=== PATIENT | female | born 1950 | race Caucasian/White ===

== ENCOUNTER → 2017-01-02 | Outpatient (CLI) | payer OTHER ==
[~2017-01-02] MED LIST: ATOR-22; CLON0.5T3; EFFSR150; SYNTHYROID
--- NOTE | 2017-01-02 16:28 | MAMMOGRAPHY REPORT ---
BILATERAL DIGITAL SCREENING MAMMOGRAM WITH CAD: 01/02/2017 CLINICAL HISTORY: Routine screening. Patient has no complaints. TECHNIQUE: Current study was also evaluated with a Computer Aided Detection (CAD) system. Bilateral CC and MLO views were obtained. COMPARISON: Comparison is made to exams dated: 01/02/2016 mammogram, 01/02/2016 mammogram, and 12/30/19 15 mammogram - [facility]. Also outside prior mammograms dated 10/30/2013, 10/29/19 12, 10/27/2010, 10/26/2009. BREAST COMPOSITION: There are scattered areas of fibroglandular density in both breasts. FINDINGS: No suspicious masses, calcifications, or areas of architectural distortion are noted in ei ther breast. There has been no significant interval change compared to prior exams. IMPRESSION: ACR BI-RADS CATEGORY 1: NEGATIVE There is no mammographic evidence of malignancy. A 1 year screening mammogram is recommended. The pa tient will receive written notification of the results. Approximately 10% of breast cancers are not detected with mammography. A negative mammographic report should not delay biopsy if a clinically suggestive mass is present. Gris Presley M.D. /:01/02/2017 14:10:28 Bomb Loader: Myah SAEED(Twin)(Herrera), [facility] letter sent: Normal 1/2 BI-RADS Code: ACR BI-RADS Category 1: Negative
== END | disposition home or self-care (01) ==
LOC: C.MAMM 13:12
PROVIDERS: ATTEND Nurse Practitioner
DX: Z12.31 Encounter for screening mammogram for malignant neoplasm of breast (principal)

== ENCOUNTER 2018-07-16 04:56 | Inpatient (IN) ==
--- NOTE | 2018-06-20 11:59 | Anesthesiology Consultation ---
Date of Service June 20, 2018 Assessment & Plan (1) Encounter for pre-operative examination: Chart Review Chart Review: Acceptable Risk for Surgery and Patient seen in Pre Admission Testing Consults Requested medical & cardiac (Monica Ch (07/04/18) & cardio for new LBBB) Patient was seen by cardio on 07/09 and they stated that patient is "low cardiac risk for surgery with no contraindications." Patient was seen by PCP's office on 07/04/18 who stated that patient is medically clear as long as cardiology clears her. Teaching & Discussion Pre-Anesthesia Teaching/Discussion Notes: Instructed NPO after midnight before surgery, except medications with 15 cc of water. Medication instructions provided according to the PAT guidelines. History Surgery Operation Date: 07/16/18 11:00 Proposed Procedures p Right Total Knee Arthroplasty - Ole Linares MD Height/Weight Height: 5 ft 1 in Weight: 67.9 kg Allergies Allergy/AdvReac Type Severity Reaction Status Date / Time Penicillins Allergy Mild RASH Verified 06/16/18 13:17 Medications Home Medications Medication Instructions Recorded Confirmed Last Taken atorvastatin 40 mg PO QPM 06/16/18 06/16/18 Unknown levothyroxine 75 mcg PO QAM 06/16/18 06/16/18 Unknown lisinopril 20 mg PO QAM 06/16/18 06/16/18 Unknown metformin 500 mg PO QPM 06/16/18 06/16/18 Unknown pioglitazone 30 mg PO QAM 06/16/18 06/16/18 Unknown sertraline 50 mg PO QAM 06/16/18 06/16/18 Unknown cetirizine [Zyrtec] 10 mg PO QAM 06/20/18 06/20/18 Unknown Past Medical History Medical History Anxiety Depression Diabetes mellitus, type 2 High cholesterol Hypertension Hypothyroidism Left bundle branch block (LBBB) Osteoarthritis Raynauds disease Past Family History Family History Father Family history of diabetes mellitus Past Surgical History Surgical History History of left knee replacement Hx of cholecystectomy Hx of eye surgery (x3 total) both eyes as child for eye muscles Hx of tubal ligation Past Anesthesia History No Hx of Anesthesia Complications and No Family Hx of Anesthesia Complications History of PONV No Motion Sickness Screening History of Motion Sickness: No Social History Smoking Status: Never smoker Do You Dip or Chew Tobacco: No Hx Alcohol Use: No Hx Substance Use: No Exercise / Class Metabolic Activity II 4-5 Yardwork/Stairs/Walk up hill (Limited due to knee pain over last 3 months. Still able to climb FOS. Denies CP or SOB. ) Review of Systems Patient denies chest pain, shortness of breath, dyspnea on exertion, cough, wheezing, palpitations. +joint pain (knee, shoulders) +acid reflux (will rarely happen, will take an occasional TUMS) Physical Exam Vital Signs BP: 143/81 P: 85 R: 18 T: 97.9 SPO2: 96% on RA ENMT Thyromental Distance: > or= 3.5 Finger Breadths (4+) Mallampati Class: IV Neck normal visual inspection and trachea midline; neck extension not limited Respiratory normal respiratory effort Auscultation: lungs clear to auscultation bilaterally Cardiovascular Rate/Rhythm: regular rate and regular rhythm Heart Sounds: no murmur Vessels: no carotid bruit Neurologic moves all extremities Psychiatric Orientation: alert and oriented x 3 Testing Electrocardiogram Date: 06/20/18 Findings: + LBBB ((new)) Sinus rhythm with occasional PVCs @ 86bpm. Chest X-Ray Date: 06/20/18 Findings: + NAD FINDINGS: A few scattered dense nodules within the left lung base and right upper lobe. These likely represent calcified granulomas. Prior cholecystectomy. No focal lung consolidations to suggest pneumonia. No evidence for pulmonary edema. The heart is normal in size. IMPRESSION: No acute process. Echocardiogram Date: 07/07/18 EF: 66% RWMA: + none Valvular Disease: + no significant valvular disease The LV wall thickness is mildly increased (concentric). The right ventricular cavity size and systolic function is normal. The left ventricular diastolic function is mildly abnormal (grade I). Trace aortic insufficiency. Significant mitral regurgitation is absent. No pericardial effusion is noted. Stress Test Date: 07/03/18 Type: nuclear Resting EF: 75% Resting LV Function: normal Rest ECG: NSR, LBBB Stress ECG: sinus tach, LBBB Arrhythmias: Occasional PVCs Symptoms: Dizzy Lexiscan nuclear stress test negative for ischemia. Patient reached 89% MPHR. Laboratory Results 06/20/18 12:55 06/20/18 12:55 Blood Type O Positive 06/20/18 12:55 Antibody Screen NEGATIVE 06/20/18 12:55 PT 11.0 Seconds (9.0-12.0) 06/20/18 12:55 INR 1.1 (0.9-1.1) 06/20/18 12:55 APTT 24.5 Seconds (21.0-31.0) 06/20/18 12:55 Hemoglobin A1c 7.1 % (4.5-5.6) H 06/20/18 12:55 Urine Color Yellow 06/20/18 12:55 Urine Appearance Clear (Clear) 06/20/18 12:55 Urine pH 5.0 (4.5-7.5) 06/20/18 12:55 Ur Specific [place] 1.024 (1.000-1.030) 06/20/18 12:55 Urine Protein Negative (Negative) 06/20/18 12:55 Urine Glucose (UA) Negative (Negative) 06/20/18 12:55 Urine Ketones Negative (Negative) 06/20/18 12:55 Urine Nitrite Negative (Negative) 06/20/18 12:55 Ur Leukocyte Esterase Negative (Negative) 06/20/18 12:55
--- NOTE | 2018-06-20 12:02 | PAT Medication Instructions ---
Medication Instructions Date of Service June 20, 2018 Home Medications atorvastatin 40 mg PO QPM levothyroxine 75 mcg PO QAM lisinopril 20 mg PO QAM metformin 500 mg PO QPM pioglitazone 30 mg PO QAM sertraline 50 mg PO QAM cetirizine [Zyrtec] 10 mg PO QAM DO NOT take the morning of surgery pioglitazone 30 mg PO QAM lisinopril 20 mg PO QAM cetirizine [Zyrtec] 10 mg PO QAM Take morning of surgery With a small sip of water, OTHERWISE NOTHING TO EAT OR DRINK AFTER MIDNIGHT: sertraline 50 mg PO QAM levothyroxine 75 mcg PO QAM Take evening before surgery atorvastatin 40 mg PO QPM metformin 500 mg PO QPM Other Notes If you have any questions please call us at [phone] or [phone] or [phone] or [phone]
--- NOTE | 2018-06-20 13:39 | XRay Report ---
XR chest Pre-admission PA/Lat HISTORY: Preop. COMPARISON: Chest 11/26/2005. FINDINGS: A few scattered dense nodules within the left lung base and right upper lobe. These likely represent calcified granulomas. Prior cholecystectomy. No focal lung consolidations to suggest pneumo tyrone. No evidence for pulmonary edema. The heart is normal in size. IMPRESSION: No acute process. Electronically signed by: Jakob Taylor M.D. 06/20/2018 1:38 PM
[2018-06-20 14:09] LABS: Basophils # (auto) 0.02 K/uL (0-0.2); Basophils % (auto) 0.4 %; Eosinophils # (auto) 0.09 K/uL (0-0.5); Eosinophils % (auto) 1.6 %; Hematocrit (blood only) 38.8 % (37-47); Hemoglobin 12.2 g/dL (12.0-16.0); Immature Granulocytes # (auto) 0.01 K/uL (0.00-0.02); Immature Granulocytes % (auto) 0.2 %; Lymphocytes # (auto) 0.95 K/uL (1.2-3.4); Lymphocytes % (auto) 17.1 %; Mean Corpuscular Hgb Conc 31.4 g/dL (32-36); Monocytes # (auto) 0.46 K/uL (0.11-0.59); Monocytes % (auto) 8.3 %; Neutrophils # (auto) 4.02 K/uL (1.4-6.5); Neutrophils % (auto) 72.4 %; Platelet Count 218 K/uL (130-400); RDW Coefficient of Variation 14.6 % (11.5-14.5); RDW Standard Deviation 49.9 fL (36.4-46.3); Red Blood Count 4.17 M/uL (4.2-5.4); White Blood Count 5.55 K/uL (4.8-10.8)
[2018-06-20 14:15] LABS: Albumin Level 3.9 gm/dl (3.4-5.0); BUN Creatinine Ratio 16.5 (10-20); Calcium 9.2 mg/dl (8.5-10.1); Creatinine Clr Calc Pharmacy 58.7 ml/min; Est GFR (African American) 85.8; Estimated Average Glucose 157 mg/dl; Hemoglobin A1C 7.1 % (4.5-5.6); Potassium 3.9 mmol/L (3.5-5.1)
[2018-06-20 14:18] LABS: INR 1.1 (0.9-1.1); Partial Thromboplastin Ratio 0.9; Partial Thromboplastin Time 24.5 Seconds (21.0-31.0)
[2018-06-20 14:38] LABS: Appearance Urine Clear (Clear); Bilirubin Urine Negative (Negative); Blood Urine Negative (Negative); Color Urine Yellow; Glucose Urine UA Negative (Negative); Ketones Urine Negative (Negative); Leukocyte Esterase Urine Negative (Negative); Nitrite Urine Negative (Negative); Protein Urine Negative (Negative); Specific Gravity Urine 1.024 (1.000-1.030); Urobilinogen Urine Negative (Negative)
--- NOTE | 2018-07-15 17:55 | History and Physical Report ---
DATE OF ADMISSION: 07/16/2018 CHIEF COMPLAINT: Chronic right knee pain. HISTORY OF PRESENT ILLNESS: This is a 67-year-old female patient of Dr. Bañuelos complaining of chronic right knee pain, longstanding, now progressively getting worse. The patient has failed conservative treatment including anti-inflammatories, intraarticular injections and aspirations and the use of a sleeve. She has been diagnosed with end-stage osteoarthritis per clinical and radiographic exams. The patient has increased pain with weightbearing activities and her pain does interfere with her activities of daily living. PAST MEDICAL HISTORY: Hypertension, hypercholesterolemia, Raynaud's syndrome, diabetes mellitus, hypothyroidism, acid reflux, obesity. SOCIAL HISTORY: Nonsmoker, nondrinker. PAST SURGICAL HISTORY: Eye surgery, cholecystectomy and tubal ligation. FAMILY HISTORY: Noncontributory. REVIEW OF SYSTEMS: Chronic right knee pain and instability. Otherwise, denies any shortness of breath, chest pain, nausea, vomiting or any other joint complaints. MEDICATIONS: Lipitor 40 mg daily, lisinopril 20 mg daily, metformin 500 mg twice daily, Synthroid 75 mcg daily, Zoloft 25 mg daily, Actos 15 mg daily, sertraline 10 mg daily. ALLERGIES: PENICILLIN. PHYSICAL EXAMINATION: GENERAL: Well-developed, well-nourished 67-year-old female in no acute distress. She is alert and oriented x3 and pleasant. HEENT: Normocephalic, atraumatic. Extraocular motions are intact. Pupils are equal, reactive to light. HEART: Regular rate and rhythm, no murmurs are appreciated. LUNGS: Clear. ABDOMEN: Soft, nontender, bowel sounds present. EXTREMITIES: Right knee reveals a range of motion of 0-130. She has medial joint line tenderness with a varus deformity. She has crepitation with passive range of motion. She has a mild effusion. She has 4/5 strength with pain. Neurologically and neurovascularly, she is intact in her right lower extremity. DIAGNOSES: Right knee end-stage osteoarthritis, hypertension, hypercholesterolemia, Raynaud's syndrome, diabetes mellitus, hypothyroidism, osteoarthritis, acid reflux, obesity. PLAN: The patient was advised of her diagnosis. Indications, risks, benefits, postop course have all been reviewed. The patient wished to proceed with a right total knee arthroplasty. Necessary consent forms, preoperative testing and clearances will be obtained.
[2018-07-16] MEDS ORDERED: LR 500ML BOLUS, THEN 15ML/HR IV SCH (06:00)
[2018-07-16] MEDS ORDERED: METOCLOPRAMIDE HCL 10 MG TABLET PO SCH (06:00)
[2018-07-16] MEDS ORDERED: VANCOMYCIN HCL 1,000 MG in SODIUM CHLORIDE 0.9% 250 ML IV SCH ×2 (06:00→18:00)
[2018-07-16] MEDS ORDERED: dexAMETHasone 4 MG TAB PO SCH (06:00)
[2018-07-16] MEDS ORDERED: CeleBREX 200 MG CAP PO SCH (06:00)
[2018-07-16] MEDS ORDERED: FAMOTIDINE 20 MG TAB PO SCH (06:00)
[2018-07-16] MEDS ORDERED: ACETAMINOPHEN 500 MG TAB PO SCH (06:00)
[2018-07-16] MEDS ORDERED: TRANEXAMIC ACID 1,000 MG **IV Pre-op IV SCH (06:00)
[2018-07-16] MEDS ORDERED: ROPIVACAINE 0.5% HCL/PF 150 MG, BUPIVACAINE 0.5% MPF 30 ML, EPINEPHrine 30MG/30ML (OR U... INFIL SCH (06:00)
[2018-07-16] MEDS ORDERED: VANCOMYCIN HCL 1,000 MG/270 ML BAG IV SCH (06:00)
[2018-07-16] MEDS ORDERED: GABAPENTIN 300 MG PO SCH (06:00)
[2018-07-16] MEDS ORDERED: BUPIVACAINE 0.5 % 5 MG/1 ML PF 10ML VIAL ONE (06:30)
[2018-07-16] MEDS ORDERED: TRANEXAMIC ACID 1,000 MG **IV Intra-op IV SCH (06:30)
[2018-07-16] MEDS ORDERED: EPINEPHrine INJ 1 MG/ML AMP ONE (06:31)
[2018-07-16] MEDS ORDERED: ROPIVACAINE 0.5% 5 MG/ML 30 ML VIAL ONE (06:31)
[2018-07-16] MEDS ORDERED: MIDAZOLAM HCL 1 MG/ML 2ML VIAL ONE (06:52)
[2018-07-16] MEDS ORDERED: fentaNYL citrate 100 MCG/2 ML VIAL ONE ×3 (06:52→08:13)
--- NOTE | 2018-07-16 06:53 | History & Physical Bridge Note ---
Date of Service July 16, 2018 History & Physical Bridge Note I have examined the patient, reviewed the History & Physical and in the interval since the performance of the History & Physical I have noted the following changes of clinical significance: no changes noted
[2018-07-16] MEDS ORDERED: ORTHO JOINT ANESTHETIC ONE (06:57)
[2018-07-16] MEDS ORDERED: BACITRACIN INJ 50,000 UNIT VIAL ONE (06:58)
[2018-07-16] MEDS ORDERED: POVIDONE-IODINE OP SOLN 30 ML BTL ONE (06:58)
[2018-07-16] MEDS ORDERED: LIDOCAINE HCL 2% 2 ML VIAL/AMP(20MG/ML) INFIL ONE (07:36)
[2018-07-16] MEDS ORDERED: ONDANSETRON INJ 2 MG/ML 2 ML VIAL ONE (07:36)
[2018-07-16] MEDS ORDERED: PHENYLEPHRINE 100MCG/ML 5ML SYR ONE (07:36)
[2018-07-16] MEDS ORDERED: PROPOFOL IV EMULSION 10 MG/ML 20 ML VIAL IV ONE (07:36)
--- NOTE | 2018-07-16 08:45 | Operative Report ---
Post Operative Report Pre & Post Diagnosis Operation Date: 07/16/18 07:00 Pre-Op Diagnosis : Right knee osteoarthritis AVN medial femoral condyle with collapse Post-Op Diagnosis: Right knee osteoarthritis AVN medial femoral condyle with collapse Procedure Operation Date: 07/16/18 07:00 Actual Procedures p Right Total Knee Arthroplasty(Right) - Ole Linares MD Surgeon Ole Linares MD Pipe Supervisor Praveen RODRIGUEZ Estimated Blood Loss 5 Findings Consistent with Post-Op Diagnosis Specimens Bone cuts Drains 2 Hemovac Anesthesia Type Spinal MAC Complications none Disposition Accompanied Patient To Recovery: No Disposition: Recovery Room Indications 60-year-old female with history of right knee pain insufficiency fracture versus AVN with collapse and progressive osteoarthritis of the knee continue synovitis failed conservative management. Patient had a similar condition on her opposite knee which required total knee replacement. She did well with that procedure now presents for total knee replacement on her right knee. Description of Procedure Patient taken to the operating room the size under spinal MAC regional anesthesia. Patient was placed supine on the operating table. A pneumatic tourniquet was placed about the right upper thigh. The right lower extremity was prepped and draped in sterile fashion. Knee exam demonstrated slight flexion contracture good flexion range of motion moderate effusion mild varus knee no instability. The leg was elevated exsanguinated with an Esmarch bandage and pneumatic tourniquet was raised to 300 millimeters of mercury. Skin incised sharply in longitudinal fashion. Subcutaneous flaps elevated. Incision was made through the medial retinaculum extending up in the mid third of the quadriceps tendon and down to the medial tibial tubercle. 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 The Allocab triathlon total knee arthroplasty system was used. To expose the knee the infrapatellar fat pad was resected. The meniscal remnants and cruciate ligam ents were resected. The anterior fat pad over the femur in the area of the anterior flange of the femoral component was resected. Lateral synovial bands release. The femur was exposed. An intramedullary drill hole was made into the canal. A guidewire was placed. Distal femoral cutting guide was adjusted to resect a 5 degree valgus cut with 8 millimeters distal femur resected. The knee was extended and a subperiosteal peel lateral release was performed around the patella. Patella width was measured and width was reproduced using a freehand cut technique and a 33 patella component. The 3 drill holes were made and the excess lateral facet was beveled off to prevent any impingement. Attention was taken back to the femur which was exposed with retractors and the femoral sizing guide was pinned in position. The drill holes were placed in 3 of external rotation to match epicondylar axis. Femur sized for a 4 component. The 4-in-1 cutting block was placed and then the anterior posterior and chamfer cuts are made. The tibia was then subluxed. The external tibial cutting guide was just to make a perpendicular cut to the long axis of the tibia below the most deficient bone loss side. A lamina batter mixer helper was used and the flexion extension gaps were balanced. All posterior osteophytes removed. All meniscal remnants were resected. The tibia exposed and the trial tibial component size 3 was externally rotated in line with the tibial tubercle and pinned in position. The punch for stem was used. The notch cutting device was centered appropriately and the femoral notch cut was made. The femoral trial was inserted. Trial tibial inserts were placed and size 9 posterior stabilized gave balanced ligaments through flexion and extension. Patella tracking was assessed. The patella tracked centrally. The trial components were then removed and the orthomix anesthetic cocktail was injected per protocol. The knee was then copiously irrigated with pulsatile lavage antibiotic solution. Final components were then cemented with Simplex cement. Final components were triathlon right posterior stabilized for femur with triathlon size 3 primary tibial baseplate with size 3 x 9 mm X3 poly-posterior stabilized tibia and a S 33 x 9 mm patella X3 poly. While the cement cured the Betadine soak was used per protocol. After cement cured further pulsatile lavage irrigation performed and 2 Hemovac drains were brought out laterally. The quadriceps tendon and medial retinaculum were closed with figure of 8 #1 Vicryl sutures. The knee was taken through full range of motion and the repair was secure. The subcutaneous tisssues were closed with 2-0 Vicryl sutures. Skin was closed with el. Sterile dressings were applied. Patient procedure well. Praveen RODRIGUEZ was my physician teachers assistant who assisted in patient positioning prepping and draping,leg positioning ,soft tissue retraction and instrument management and participated in the closing and will participate in postoperative care of the patient. The patient tolerated the procedure well. I attest to the content of the Intraoperative Record and any orders documented therein. Any exceptions are noted below.
[2018-07-16] MEDS ORDERED: ATROPINE SULFATE 0.1 MG/ML 10ML SYR IV PRN (09:05)
[2018-07-16] MEDS ORDERED: ePHEDrine sulfate 50 MG/ML AMP IV PRN (09:05)
--- NOTE | 2018-07-16 09:44 | XRay Report ---
XR knee RT 2V routine CLINICAL HISTORY: Surgical Post Op COMPARISON: None FINDINGS: Alignment of the total right knee arthroplasty is anatomic. There is no fracture or unexpe cted radiopaque foreign body. Skin el are present. IMPRESSION: Expected findings following total right knee arthroplasty Electronically signed by: Jim Fraser M.D. 07/16/2018 9:42 AM
--- NOTE | 2018-07-16 10:07 | Anesthesiology Progress Note ---
Date of Service July 16, 2018 Anesthesia Post Procedure Vital Signs Vital Signs: Temp Pulse Pulse Resp BP BP Pulse Ox 07/16/18 10:05 89 15 93/49 L 97 07/16/18 10:01 87 15 96 07/16/18 10:00 88 15 105/53 L 99 07/16/18 09:57 93 H 17 88/54 L 97 07/16/18 09:55 86 16 79/69 L 99 07/16/18 09:50 94 H 19 107/53 L 98 07/16/18 09:46 92 H 20 82/50 L 93 07/16/18 09:45 87 16 95 07/16/18 09:40 86 17 119/60 98 07/16/18 09:39 91 H 17 89/52 L 98 07/16/18 09:35 88 13 88/52 L 94 07/16/18 09:31 88 16 92/47 L 95 07/16/18 09:30 90 14 95 07/16/18 09:25 86 15 107/54 L 97 07/16/18 09:21 87 13 107/51 L 97 07/16/18 09:20 88 15 97 07/16/18 09:15 89 19 120/66 99 07/16/18 09:11 95 H 18 120/64 98 07/16/18 09:10 93 H 14 99 07/16/18 09:06 95 H 22 128/88 98 07/16/18 09:05 98 07/16/18 09:01 36.1 C L 95 H 95 H 28 H 146/67 H 147/67 H 100 07/16/18 05:42 36.9 C 88 16 158/79 H 97 Notes Mental Status: alert / awake / arousable Patient Amnestic to Procedure: Yes Nausea / Vomiting: adequately controlled Pain: adequately controlled Airway Patency, RR, SpO2: stable & adequate BP & HR: stable & adequate Hydration State: stable & adequate Neuraxial Anesthesia: was administered and sensory block is resolving Anesthetic Complications: no major complications apparent
[2018-07-16] MEDS ORDERED: VANCOMYCIN CONSULT ACTIVE PRN (10:13)
[2018-07-16] MEDS ORDERED: NALOXONE HCL 0.4 MG/1 ML VIAL/CARP IV PRN (10:13)
[2018-07-16] MEDS ORDERED: BISACODYL 10 MG SUPP PR PRN (10:13)
[2018-07-16] MEDS ORDERED: HYDROmorphone INJ 0.5 MG/0.5 ML SYR IV PRN (10:13)
[2018-07-16] MEDS ORDERED: MAGNESIUM HYDROXIDE SUSP 30 ML UDC PO PRN (10:13)
[2018-07-16] MEDS ORDERED: ONDANSETRON INJ 2 MG/ML 2 ML VIAL IV PRN (10:13)
[2018-07-16] MEDS ORDERED: PHARMACY GLYCEMIC MGMT CONSULT PRN (10:37)
[2018-07-16] MEDS ORDERED: CARBOHYDRATES FOR HYPOGLYCEMIA PO PRN (11:15)
[2018-07-16] MEDS ORDERED: GLUCOSE 10 TABS/TUBE PO PRN (11:15)
[2018-07-16] MEDS ORDERED: GLUCAGON FOR INJ 1 MG VIAL SQ PRN (11:15)
[2018-07-16] MEDS ORDERED: DEXTROSE 50% 50 ML SYRINGE IV PRN (11:15)
[2018-07-16] MEDS ORDERED: GLUCOSE 40% GEL 15 GM TUBE PO PRN (11:15)
--- NOTE | 2018-07-16 11:18 | Pharmacy Report ---
Pharmacy Glycemic Short Note 2 - Date of Service July 16, 2018 - Glycemic Short BSG Results (Last 24 hours): 07/16/18 07/16/18 05:58 09:05 POC Glucose 168 H 138 H OUTPATIENT ANTIDIABETIC REGIMEN: * metformin 500 mg PO qPM * pioglitazone 30 mg PO qAM * A1c = 7.1% (06/20/18) ASSESSMENT: * 68 yr old T2DM female s/p R TKA * Pt is maintained on oral antidiabetic agents as an outpatient * Will hold oral agents for admission and utilize SQ basal bolus insulin regimen which is the recommended regimen for inpatient glycemic control. * Will initiate weight based insulin dosing for insulin kathy patient and titrate based on BSG trend * Pt did not receive intra-operative steroids, therefore I will utilize more conservative insulin dosing * Will target BSG < 150 mg/dL to limit the risk of post operative infection/c omplication PLAN FOR INPATIENT GLYCEMIC CONTROL: * Hold outpatient oral diabetes medications * Basal insulin * Lantus per scale with dinner x 1 * 0 units for BSG 160 mg/dL or less * 10 units for BSG greater than 160 mg/dL * Bolus insulin * NovoLog per scale ACHS or Q6hrs while NPO * Goal Range: Low 110 mg/dL - High 140 mg/dL * Correction Factor: 30 mg/dL/unit * Nutritional / Prandial insulin per carb ratio of 1 unit per 10 grams CHO consumed PLAN FOR DISCHARGE: * A1c 7.1% * Reasonable to resume oral agents (metformin + pioglitazone) on discharge * consider maximizing metformin dosing; can increase by 500 mg per week as tolerated to goal of 1000 mg P BID
[2018-07-16] MEDS: SODIUM CHLORIDE 0.9% 1000ML 1,000 ML IV SCH ×2 (11:29→21:17)
[2018-07-16] MEDS: SERTRALINE HCL 50 MG TABLET PO SCH (11:30)
[2018-07-16] MEDS: LEVOTHYROXINE SODIUM 75 MCG TABLET PO SCH (11:30)
[2018-07-16] MEDS: LISINOPRIL 20 MG TAB PO SCH (11:31)
[2018-07-16] MEDS: CETIRIZINE HCL 10 MG TABLET PO SCH (11:31)
--- NOTE | 2018-07-16 11:51 | Consultation ---
Date of Consultation July 16, 2018 Assessment & Plan (1) S/P total knee arthroplasty: Post op day# 0 S/P R TKA by Dr Linares EBL #5ml Currently pain controlled post op -pain management per ortho -wound management per ortho -PT/OT as appropriate -DVT prophylaxis per ortho -incentive spirometry -monitor H&H for acute blood loss anemia (2) Diabetes mellitus, type 2: A1c: 7.1 on 06/20/18 -hold metformin, actos -basal bolus insulin - glycemic pharmacist helping to manage (3) Hypertension: -hold lisinopril today and recheck tomorrow (4) High cholesterol: -continue atorvastatin (5) Hypothyroidism: TSH: 1.5 on 06/20/18 -continue levothyroxine (6) Anxiety: -continue sertraline DVT Prophylaxis -SCDs, ASA BID Disposition per primary team Follows with [facility]- [facility] for routine care Pt was seen with Dr Leal. 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 Currently pt reports still having numbness to right leg and not having pain. Ate toast and drinking without nausea or vomiting. Has not urinated yet since surgery. Last BM yesterday. Denies fever/chills, YOUNG, dizziness, syncope, neck pain, CP, SOB, orthopnea, palpitations, cough, sore throat, choking, abdominal pain. Allergies Allergy/AdvReac Type Severity Reaction Status Date / Time Penicillins Allergy Mild RASH Verified 07/16/18 05:39 Home Medications Home Medications Medication Instructions Recorded Confirmed Type atorvastatin 40 mg PO QPM 06/16/18 07/16/18 History levothyroxine 75 mcg PO QAM 06/16/18 07/16/18 History lisinopril 20 mg PO QAM 06/16/18 07/16/18 History metformin 500 mg PO QPM 06/16/18 07/16/18 History pioglitazone 30 mg PO QAM 06/16/18 07/16/18 History sertraline 50 mg PO QAM 06/16/18 07/16/18 History cetirizine [Zyrtec] 10 mg PO QAM 06/20/18 07/16/18 History aspirin 81 mg PO DAILY 07/16/18 07/16/18 History Patient History Medical History Left bundle branch block (LBBB) (Chronic) High cholesterol (Chronic) Hypertension (Chronic) Anxiety (Chronic) Depression (Chronic) Diabetes mellitus, type 2 (Chronic) Hypothyroidism (Chronic) Osteoarthritis (Chronic) Raynauds disease (Chronic) Surgical History Hx of eye surgery (Chronic) (x3 total) both eyes as child for eye muscles Hx of tubal ligation (Chronic) Hx of cholecystectomy (Chronic) History of left knee replacement (Chronic) Family History Father Family history of diabetes mellitus Social History Preferred Language: Persian Communication Ability: Effective Beliefs That Will Affect Care: None Current Living Situation: Spouse Other Information That Helps Us Care for You: No Feels Safe at Home: Yes Safety Concerns: Feels Safe At This Time Smoking Status: Never smoker Hx Alcohol Use: No Hx Substance Use: No Review of Systems as per HPI other systems reviewed and negative Physical Exam Vital Signs (Past 24 Hours): Last Vital Signs Temp 36.6 C 07/16/18 11:19 Pulse 88 07/16/18 11:19 Resp 15 07/16/18 11:19 BP 116/72 07/16/18 11:19 Pulse Ox 99 07/16/18 11:19 Physical Exam: General: no distress, WDWN Head: normocephalic, atraumatic Eyes: conjunctiva non-injected, anicteric ENT: normal inspection external ears, nose, mucous membranes moist Neck: supple, trachea midline Lungs: clear, no respiratory distress, no wheezing/rhonchi/rales CV: RRR, no pretibial edema Abd: normal BS, soft, non-tender Ext: no calf tenderness, RLE: R knee with surgical dressing in place and is dry. bilateral pedal pushes and pulls intact, distal pulses intact, brisk capillary refill Neuro: A&O x 3, no focal deficits noted, normal affect Skin: warm, dry
[2018-07-16] MEDS: ACETAMINOPHEN 500 MG TAB PO SCH ×2 (13:11→20:51)
[2018-07-16] MEDS: INSULIN ASPART 100 UNITS/ML 3 ML PEN SC SCH ×3 (13:12→21:14)
[2018-07-16] MEDS ORDERED: LANTUS PER UNIT CHARGE SQ SCH (16:30)
[2018-07-16] MEDS: TRAMADOL HCL 50 MG TABLET PO PRN (18:26)
[2018-07-16] MEDS: DOCUSATE SODIUM 100 MG CAP PO SCH (20:33)
[2018-07-16] MEDS: SENNA 8.6 MG TAB PO SCH (20:34)
[2018-07-16] MEDS: ATORVASTATIN 40 MG TAB PO SCH (20:52)
[2018-07-16] MEDS: CeleBREX 200 MG CAP PO SCH (20:52)
[2018-07-16] MEDS: OXYCODONE HCL IR 5 MG TAB (IMMEDIATE RELEASE) PO PRN (20:52)
[2018-07-16] MEDS: ASPIRIN 81 MG ECTAB PO SCH (20:52)
[2018-07-17] MEDS: INSULIN ASPART 100 UNITS/ML 3 ML PEN SC SCH ×6 (00:40→21:12)
[2018-07-17] MEDS: TRAMADOL HCL 50 MG TABLET PO PRN ×2 (01:45→23:28)
[2018-07-17] MEDS: LEVOTHYROXINE SODIUM 75 MCG TABLET PO SCH (05:30)
[2018-07-17] MEDS: ACETAMINOPHEN 500 MG TAB PO SCH ×3 (05:30→21:06)
[2018-07-17 07:43] LABS: Hematocrit (blood only) 33.9 % (37-47); Hemoglobin 11.1 g/dL (12.0-16.0); Mean Corpuscular Hgb Conc 32.7 g/dL (32-36); Mean Corpuscular Volume 92.4 fL (80-100); Mean Platelet Volume 10.8 fL (7.4-10.4); Platelet Count 143 K/uL (130-400); RDW Coefficient of Variation 14.6 % (11.5-14.5); Red Blood Count 3.67 M/uL (4.2-5.4); White Blood Count 4.74 K/uL (4.8-10.8)
[2018-07-17] MEDS: SERTRALINE HCL 50 MG TABLET PO SCH (08:12)
[2018-07-17] MEDS: ASPIRIN 81 MG ECTAB PO SCH ×2 (08:12→18:32)
[2018-07-17] MEDS: PANTOprazole 40 MG TAB PO SCH ×2 (08:12→21:06)
[2018-07-17] MEDS: CETIRIZINE HCL 10 MG TABLET PO SCH (08:12)
[2018-07-17] MEDS: CeleBREX 200 MG CAP PO SCH ×2 (08:12→21:07)
[2018-07-17] MEDS: MULTIVITAMIN TAB PO SCH (08:13)
[2018-07-17 08:14] LABS: BUN Creatinine Ratio 23.5 (10-20); Calcium 8.4 mg/dl (8.5-10.1); Creatinine Clr Calc Pharmacy 61.7 ml/min; Est GFR (African American) 93.4; Est GFR (Non-African American) 80.6; Potassium 4.1 mmol/L (3.5-5.1)
[2018-07-17] MEDS: DOCUSATE SODIUM 100 MG CAP PO SCH ×2 (08:14→18:32)
[2018-07-17] MEDS: OXYCODONE HCL IR 5 MG TAB (IMMEDIATE RELEASE) PO PRN ×4 (08:18→21:07)
--- NOTE | 2018-07-17 08:22 | Anesthesiology Progress Note ---
Date of Service July 17, 2018 Anesthesia Post Procedure Vital Signs Vital Signs: Temp Pulse Pulse Pulse Pulse Resp BP 07/17/18 07:14 36.6 C 76 18 07/17/18 03:50 36.6 C 84 20 07/16/18 23:12 36.8 C 80 20 07/16/18 19:08 36.6 C 89 18 07/16/18 15:30 36.6 C 84 18 07/16/18 13:25 36.4 C L 81 15 07/16/18 12:12 98 H 18 07/16/18 11:19 36.6 C 88 15 07/16/18 10:46 36.6 C 78 15 07/16/18 10:15 36.6 C 91 H 16 07/16/18 10:05 89 15 93/49 L 07/16/18 10:01 87 15 07/16/18 10:00 88 15 105/53 L 07/16/18 09:57 93 H 17 88/54 L 07/16/18 09:55 86 16 79/69 L 07/16/18 09:50 94 H 19 107/53 L 07/16/18 09:46 92 H 20 82/50 L 07/16/18 09:45 87 16 07/16/18 09:40 86 17 119/60 07/16/18 09:39 91 H 17 89/52 L 07/16/18 09:35 88 13 88/52 L 07/16/18 09:31 88 16 92/47 L 07/16/18 09:30 90 14 07/16/18 09:25 86 15 107/54 L 07/16/18 09:21 87 13 107/51 L 07/16/18 09:20 88 15 07/16/18 09:15 89 19 120/66 07/16/18 09:11 95 H 18 120/64 07/16/18 09:10 93 H 14 07/16/18 09:06 95 H 22 128/88 07/16/18 09:05 07/16/18 09:01 36.1 C L 95 H 95 H 28 H 146/67 H BP Pulse Ox 07/17/18 07:14 127/73 97 07/17/18 03:50 128/73 98 07/16/18 23:12 146/79 H 97 07/16/18 19:08 153/77 H 95 03/13/19 15:30 120/69 93 07/16/18 13:25 109/67 98 07/16/18 12:12 135/62 96 07/16/18 11:19 116/72 99 07/16/18 10:46 120/75 98 07/16/18 10:15 120/75 98 07/16/18 10:05 97 07/16/18 10:01 96 07/16/18 10:00 99 07/16/18 09:57 97 07/16/18 09:55 99 07/16/18 09:50 98 07/16/18 09:46 93 07/16/18 09:45 95 07/16/18 09:40 98 07/16/18 09:39 98 07/16/18 09:35 94 07/16/18 09:31 95 07/16/18 09:30 95 07/16/18 09:25 97 07/16/18 09:21 97 07/16/18 09:20 97 07/16/18 09:15 99 07/16/18 09:11 98 07/16/18 09:10 99 07/16/18 09:06 98 07/16/18 09:05 98 07/16/18 09:01 147/67 H 100 Notes Mental Status: alert / awake / arousable and participated in evaluation Nausea / Vomiting: adequately controlled Pain: adequately controlled Airway Patency, RR, SpO2: stable & adequate BP & HR: stable & adequate Hydration State: stable & adequate Neuraxial Anesthesia: sensory block resolved Anesthetic Complications: Pt Satisfied with anesthetic care
--- NOTE | 2018-07-17 09:15 | Orthopedic Progress Note ---
Date of Service July 17, 2018 Assessment & Plan (1) S/P total knee arthroplasty: POD #1, Right TKA PT/ OT DVT proph- ASA D/C planning- Home w OPPT Will add Protonix and check EKG As per medicine Subjective POD #1, Doing well, denies SOB, CP, N/V, pain controlled well. States she is getting a burning/ reflux in her chest with the administration of ASA. Physical Exam Vital Signs (Past 24 Hours): Last Vital Signs Temp 36.6 C 07/17/18 07:14 Pulse 76 07/17/18 07:14 Resp 18 07/17/18 07:14 BP 127/73 07/17/18 07:14 Pulse Ox 97 07/17/18 07:14 Physical Exam: Right knee dressings c/d/i, no drainage. Toes and ankle mobile. No calf tenderness. A&Ox3 Drrain in tact.
--- NOTE | 2018-07-17 09:47 | Hospitalist Progress Note ---
Date of Service July 17, 2018 Assessment & Plan (1) S/P total knee arthroplasty: Post op day# 1 S/P R TKA by Dr Linares Pain moderately controlled post op -pain management per ortho -wound management per ortho -PT/OT as appropriate -DVT prophylaxis per ortho -incentive spirometry -Hgb: 11 from 12.2 pre op, stable (2) GERD (gastroesophageal reflux disease): Pt developed heartburn last night taking aspirin late in evening. Protonix was started and pt reports relief. Denies any further heartburn. Denies CP, SOB. EKG this am shows chronic LBBB. -continue protonix po -aspirin changed to be taken with meals (3) Diabetes mellitus, type 2: A1c: 7.1 on 06/20/18 -hold metformin, actos -basal bolus insulin - glycemic pharmacist managing (4) Hypertension: Stable -can resume lisinopril (5) High cholesterol: -continue atorvastatin (6) Hypothyroidism: TSH: 1.5 on 06/20/18 -continue levothyroxine (7) Anxiety: -continue sertraline DVT Prophylaxis -SCDs, ASA BID Disposition per primary team Follows with Monica RAUS[facility]- [facility] for routine care Pt was seen with Dr Power. See addendum Supervising Physician Co-Signing Physician Notes Patient is seen and examined at bedside. Right leg pain is controlled. Reports having heartburn overnight which improved with PPI. Denies any chest pain, SOB, dizziness. On exam Patient is moderately built and nourished, no distress, lungs CTA, S1, S2, Abd soft, non tender, Right knee surgical site in dressing,No focal deficits. Continue Wound Care, activity as per Primary Team. Continue PPI for GERD. Resume lisinopril for HTN. Monitor renal function, electrolytes, Hb. DVT Px as per Primary team. I personally reviewed the record. Patient is interviewed and examined at bedside. Patient's care is coordinated with Jessica Ventura PA-C. Please refer to the documentation above for details of patient's presentation and for discussion of other issues. Subjective Pt seen and examined. Sitting up in bed. Pt states had some pain to L knee She states had some heartburn described as burning to epigastric radiating up esophagus after taking aspirin. States took aspirin several hours after eating last night. Protonix was ordered and heartburn sensation has resolved. Hx heartburn in past and this felt same, doesn't usually have to take any medications for reflux. Denies other CP. Denies SOB. Had EKG this am with chronic LBBB, no other significant changes noted. Eating and drinking well. No other nausea or vomiting. Reports +flatulence. Denies fever/chills, YOUNG, dizziness, syncope, orthopnea, palpitations, cough, sore throat, choking, abdominal pain, paresthesias, rashes, urinary symptoms. Physical Exam Vital Signs (Past 24 Hours): Last Vital Signs Temp 36.6 C 07/17/18 07:14 Pulse 76 07/17/18 07:14 Resp 18 07/17/18 07:14 BP 127/73 07/17/18 07:14 Pulse Ox 97 07/17/18 07:14 Physical Exam: General: no distress, WDWN Head: normocephalic, atraumatic Eyes: conjunctiva non-injected, anicteric ENT: normal inspection external ears, nose, mucous membranes moist Neck: supple, trachea midline Lungs: clear, no respiratory distress, no wheezing/rhonchi/rales CV: RRR, no murmur, no pretibial edema Abd: normal BS, soft, non-tender Ext: R leg surgical dressing in place and dry, no calf tenderness, bilateral p edal pulls and pushes intact, distal pulses intact bilaterally Neuro: A&O x 3, no focal deficits noted, normal affect Skin: warm, dry Results & Data Laboratory Results Short CBC 07/17/18 Range/Units 06:36 WBC 4.74 L (4.8-10.8) K/uL Hgb 11.1 L (12.0-16.0) g/dL Hct 33.9 L (37-47) % Plt Count 143 (130-400) K/uL BMP 07/17/18 06:36 Sodium 139 Potassium 4.1 Chloride 107 Carbon Dioxide 26 BUN 18 Creatinine 0.76 Glucose 141 H Calcium 8.4 L
--- NOTE | 2018-07-17 10:20 | Pharmacy Report ---
Pharmacy Glycemic Short Note 2 - Date of Service July 17, 2018 - Glycemic Short BSG Results (Last 24 hours): 07/16/18 07/16/18 07/16/18 11:55 17:03 20:48 Glucose POC Glucose 212 H 83 102 H 07/17/18 07/17/18 07/17/18 00:06 03:48 06:36 Glucose 141 H POC Glucose 115 H 131 H 07/17/18 08:13 Glucose POC Glucose 131 H OUTPATIENT ANTIDIABETIC REGIMEN: * metformin 500 mg PO qPM * pioglitazone 30 mg PO qAM * A1c = 7.1% (06/20/18) ASSESSMENT: 07/17 * Glycemic control acceptable over the last 24 hrs * Fasting BSG 131 this AM with no basal insulin on board. May only need small doses of basal insulin this admission * Post-prandial BSGs well controlled with current CF / CR however BSG did drop to less than 100 at one point yesterday - will lessen doses slightly * Plan to resume metformin tomorrow if renal fxn and diet permit. PLAN FOR INPATIENT GLYCEMIC CONTROL: * Hold outpatient oral diabetes medications (metformin + pioglitazone) * Basal insulin * Lantus 6 units SQ HS * Bolus insulin (dose decrease) * NovoLog per scale ACHS or Q6hrs while NPO * Goal Range: Low 110 mg/dL - High 140 mg/dL * Correction Factor: 35 mg/dL/unit * Nutritional / Prandial insulin per carb ratio of 1 unit per 12 grams CHO consumed PLAN FOR DISCHARGE: * A1c 7.1% * Reasonable to resume oral agents (metformin + pioglitazone) on discharge * consider maximizing metformin dosing; can increase by 500 mg per week as tolerated to goal of 1000 mg P BID
[2018-07-17] MEDS: SENNA 8.6 MG TAB PO SCH (18:32)
[2018-07-17] MEDS ORDERED: LANTUS PER UNIT CHARGE SQ SCH ×2 (21:00)
[2018-07-17] MEDS: ATORVASTATIN 40 MG TAB PO SCH (21:06)
[2018-07-17 23:17] VITALS: O2SAT 91
[2018-07-18] MEDS: ACETAMINOPHEN 500 MG TAB PO SCH (05:51)
[2018-07-18] MEDS: LEVOTHYROXINE SODIUM 75 MCG TABLET PO SCH (05:52)
[2018-07-18 06:38] VITALS: TEMP 98.1
[2018-07-18 06:53] LABS: Hematocrit (blood only) 40.4 % (37-47); Mean Corpuscular Hgb Conc 32.2 g/dL (32-36); Mean Corpuscular Volume 91.6 fL (80-100); Mean Platelet Volume 10.6 fL (7.4-10.4); Platelet Count 237 K/uL (130-400); RDW Coefficient of Variation 14.6 % (11.5-14.5); RDW Standard Deviation 49.3 fL (36.4-46.3); Red Blood Count 4.41 M/uL (4.2-5.4); White Blood Count 8.08 K/uL (4.8-10.8)
[2018-07-18 07:14] LABS: BUN Creatinine Ratio 14.7 (10-20); Calcium 9.4 mg/dl (8.5-10.1); Creatinine Clr Calc Pharmacy 48.8 ml/min; Est GFR (African American) 70.4; Est GFR (Non-African American) 60.8; Potassium 3.8 mmol/L (3.5-5.1)
[2018-07-18] MEDS: DOCUSATE SODIUM 100 MG CAP PO SCH (07:42)
[2018-07-18] MEDS: LISINOPRIL 20 MG TAB PO SCH (07:42)
[2018-07-18] MEDS: MULTIVITAMIN TAB PO SCH (07:42)
[2018-07-18] MEDS: PANTOprazole 40 MG TAB PO SCH (07:42)
[2018-07-18] MEDS: ASPIRIN 81 MG ECTAB PO SCH (07:43)
[2018-07-18] MEDS: CETIRIZINE HCL 10 MG TABLET PO SCH (07:43)
[2018-07-18] MEDS: SERTRALINE HCL 50 MG TABLET PO SCH (07:44)
[2018-07-18] MEDS: CeleBREX 200 MG CAP PO SCH (07:44)
[2018-07-18] MEDS: INSULIN ASPART 100 UNITS/ML 3 ML PEN SC SCH (07:46)
[2018-07-18] MEDS: OXYCODONE HCL IR 5 MG TAB (IMMEDIATE RELEASE) PO PRN (07:52)
--- NOTE | 2018-07-18 08:24 | Orthopedic Progress Note ---
Date of Service July 18, 2018 Assessment & Plan (1) S/P total knee arthroplasty: POD #2, Right TKA PT/ OT DVT proph- ASA D/C planning- Home w HH today Will continue protonix and f/u with PCP As per medicine Subjective POD #2, Doing well, denies SOB, CP, N/V, pain controlled well. States reflux is better with protonix and asa with food. EKG w chronic LBBB, no new changes. Physical Exam Vital Signs (Past 24 Hours): Last Vital Signs Temp 36.7 C 07/18/18 06:37 Pulse 84 07/18/18 06:37 Resp 16 07/18/18 06:37 BP 160/84 H 07/18/18 06:38 Pulse Ox 91 07/18/18 06:37 Physical Exam: Right knee silverlon c/d/i, no drainage, no erythema, no calf tenderness, toes and ankle mobile, A&Ox3.
[2018-07-18 09:29] VITALS: PULSE 90
[2018-07-18 09:38] VITALS: BP 149/83
--- NOTE | 2018-07-19 14:02 | Discharge Summary ---
Date of Service August 05, 2018 Discharge Data Consultations 07/11/18 12:30 Consult Hospitalist Routine 07/16/18 10:13 Consult Case Management - Discharge Planning Routine Consult Hospitalist Routine Procedures Performed Operation Date: 07/16/18 07:00 Actual Procedures p Right Total Knee Arthroplasty(Right) - Ole Linares MD
--- NOTE | 2018-08-03 21:53 | Discharge Summary ---
HISTORY OF PRESENT ILLNESS: This is a 68-year-old female patient of Dr. Linares's complaining of chronic right knee pain, longstanding, now progressively getting worse. The patient has failed conservative treatment. She was diagnosed with end-stage osteoarthritis per clinical and radiographic exams. The patient wished to proceed with a right total knee arthroplasty. PAST MEDICAL HISTORY: Hypertension, hypercholesterolemia, Raynaud's syndrome, diabetes mellitus, hypothyroidism, acid reflux, and obesity. POSTOPERATIVE COURSE: The patient underwent a right total knee arthroplasty on 07/16/2018. She was followed closely with physical therapy, pain control, medical consultation and DVT prophylaxis in the form of aspirin. The patient did have some acid reflux symptom postoperative day #1. EKG was negative for any type of heart concerns. She will continue Protonix following her hospital stay and follow up with her primary care physician for her reflux. Otherwise, an uneventful postoperative course. PHYSICAL EXAMINATION: On discharge, patient's right knee Silverlon dressing was clean, dry and intact. There was no redness or drainage. She had no calf tenderness. Negative Homans sign. Neurologically and neurovascularly she is intact in her right lower extremity. DIAGNOSES: Status post right total knee arthroplasty, hypertension, hypercholesterolemia, Raynaud's syndrome, diabetes mellitus, hypothyroidism, acid reflux, and obesity. PLAN: The patient was discharged home with home health services. She will continue her preadmission medications with the addition of aspirin for DVT prophylaxis and pain medication. She will follow up with Dr. Linares as an outpatient.
== END 2018-07-18 11:24 | disposition home health service (06) | DRG 470 ==
LOC: ASU 04:56 → 3E 09:08